=== PATIENT | male | born 1955 | race Two or more races ===

== ENCOUNTER 2016-07-15 20:29 | Emergency (ER) | payer OTHER ==
[~2016-07-15 20:29] MED LIST: APRESOLINE PO; NORVASC PO; PHENERGAN12.5 MG PO; VICODIN 5/500 T1 TAB PO
== END 2016-07-15 20:30 | disposition home or self-care (01) ==
LOC: CFTX 20:29
DX: R05 Cough (principal); I10 Essential (primary) hypertension; F17.200 Nicotine dependence, unspecified, uncomplicated; Z90.49 Acquired absence of other specified parts of digestive tract
CPT/HCPCS: 99282

== ENCOUNTER 2016-09-01 16:05 | Emergency (ER) | payer OTHER ==
--- NOTE | ~2016-09-01 | CR172 ---
[facility] A Service of [facility] & [facility] RADIOLOGY TEXT RESULTS PATIENT: CAMILO MARQUEZ LOCATION: [facility] : 51 UNIT #: [id number] AGE: [address]: Mark Knapp MD SEX: M ORDER DR: [id number] [facility] [address] [place], [place] [address] [id number] MR#: [id number] Acc #: [id number] NAME: CAMILO MARQUEZ : 1955 SEX: M STUDY DATE/TIME: 09/01/2016 19:09 UNIT: [facility] ROOM: STUDY DESCRIPTION: CR Knee 3 Views Lt Attending Physician: Mark Knapp M.D. Ordering Physician: Mark Knapp M.D. Primary Care Physician: Primary Care Physician No MEDICAL IMAGING REPORT This report is preliminary unless electronic signature is present EXAM Left knee, 3 views HISTORY Knee pain, onset this morning, no known injury. FINDINGS Three views of the left knee demonstrates no fracture or dislocation. No joint effusion. Small amount of arteriovascular calcifications. Radiodensity noted in the medial lower leg suggest a foreign body. IMPRESSION No definite acute abnormality. Probable metallic foreign body in medial aspect right lower leg. Dictated by... Arabella Santiago M.D. THIS IS AN ELECTRONICALLY VERIFIED REPORT Arabella Santiago M.D. at 09/01/2016 9:14 PM JOSE EDUARDO/gera TD: 09/01/2016 20:12 JOB #: [id number] MEDICAL IMAGING REPORT Page 1 of 1 COPY
== END 2016-09-01 21:50 | disposition home or self-care (01) ==
LOC: CED 16:05
DX: M76.9 Unspecified enthesopathy, lower limb, excluding foot (principal); I10 Essential (primary) hypertension
CPT/HCPCS: 73562; 99283